=== PATIENT | female | born 1955 | race Caucasian/White ===

== ENCOUNTER 2018-01-31 07:33 | Day surgery (SDC) | payer OTHER ==
[~2018-01-31 07:33] MED LIST: AMBIEN10 MG PO; CIPRO750 MG PO; Colace 100MG PO; NEURONTIN PO; NEUROTIN PO; ORPH100T PO; PERCOCET 10-3251 TAB PO; PERCOCET 5/3251 TAB PO; RELA PO; SYNTHROID150 MCG PO; ULTRACET PO; ZANTAC300 MG PO; ZOCOR40 MG PO
== END 2018-01-31 16:10 | disposition home or self-care (01) ==
LOC: CIR.AMB 07:33
DX: N87.1 Moderate cervical dysplasia (principal); N72 Inflammatory disease of cervix uteri; E03.8 Other specified hypothyroidism

== ENCOUNTER 2025-01-21 10:45 | Inpatient (IN) | payer OTHER ==
[~2025-01-21] VITALS: Ht 170.2 cm; Wt 95.3 kg
[2025-01-21 12:52] LABS: HEMATOCRIT 38.4 % (36.0-45.00); HEMOGLOBIN 12.6 g/dL (12.0-15.00); MEAN CELL VOLUME 86.8 fL (80.00-100.00); MEAN CORPUSCULAR HEMOGLOBIN 28.4 pg (27.00-32.0); MEAN CORPUSCULAR HGB CONC 32.8 g/dl (32.0-36.0); PLATELET COUNT 204 K/uL (150-450); RED BLOOD COUNT 4.42 M/uL (4.00-6.00); RED CELL DISTRIBUTION WIDTH 14.4 % (11.5-14.5)
[2025-01-21 12:54] LABS: PH,URINE 7.5 (5.0-8.0); URINE APPEARANCE Cloudy; URINE BILIRRUBIN Negative (NEGATIVE); URINE BLOOD Negative; URINE COLOR Yellow; URINE GLUCOSE Negative (NEGATIVE); URINE KETONE Negative (NEGATIVE); URINE LEUKOCYTE Small; URINE NITRATE Negative; URINE PROTEIN Negative (NEGATIVE); URINE UROBILINOGEN 0.2 E.U./dl
[2025-01-21 12:55] LABS: URINE BACTERIA 61.1 uL (0.0-1933); URINE EPITHELIAL CELLS 18.3 uL (0.0-38.8); URINE RBC 4.8 uL (0.0-20.8); URINE WBC 102.9 uL (0.0-23.2)
[2025-01-21 13:12] VITALS: BP 130/76
[2025-01-21] MEDS ORDERED: ZETIA10 MG PO (13:13)
[2025-01-21] MEDS ORDERED: TOPROL XL50 M1 PO (13:14)
[2025-01-21] MEDS ORDERED: GLUMETZA500 MG PO (13:14)
[2025-01-21] MEDS ORDERED: LASIX40 MG PO (13:14)
[2025-01-21] MEDS ORDERED: COZAAR100 MG PO (13:14)
[2025-01-21] MEDS ORDERED: SYNTHROID137 MCG PO (13:15)
[2025-01-21] MEDS ORDERED: SINGULAIR10 MG PO (13:15)
[2025-01-21] MEDS ORDERED: CLONAZEPAM0.5 M1 PO (13:15)
[2025-01-21] MEDS ORDERED: TAMBOCOR150 MG PO (13:16)
[2025-01-21] MEDS ORDERED: ELIQUIS5 MG PO (13:16)
[2025-01-21 13:20] LABS: INR 0.95; PARTIAL THROMBOPLASTIN TIME 26.8 SECONDS (22.0-34.0); PROTHROMBIN TIME 10.4 SECONDS (9.0-11.5)
[2025-01-21 14:15] LABS: ALBUMIN 3.6 gm/dL (3.4-5.0); BILIRUBIN TOTAL 0.38 mg/dL (0.3-1.2); CALCIUM 9.4 mg/dL (8.5-10.1); CREATININE SERUM 0.72 mg/dL (0.55-1.02); GFR 80.31; GLOBULINA 3.5 G/DL (2.4-3.5); POTASSIUM 3.88 mEq/L (3.5-5.1); TOTAL PROTEIN 7.1 gm/dL (6.4-8.2)
[2025-01-26] MEDS ORDERED: TRANEXAMIC ACID 100MG/1ML (1000MG) AMPUL IV ONE (09:17)
[2025-01-26] MEDS ORDERED: CEFAZOLIN SODIUM 1,000 MG VIAL ONE ×2 (09:17→11:25)
[2025-01-26] MEDS ORDERED: OxyCODONE HCL/APAP UD (PERCOCET) PO PRN (09:45)
[2025-01-26] MEDS ORDERED: ONDANSETRON HCL 2 MG/ML VIAL IV PRN (09:45)
[2025-01-26] MEDS ORDERED: KETOROLAC TROMETHAMINE 60 MG VIAL IM ONE (10:15)
[2025-01-26] MEDS ORDERED: MORPHINE SULFATE 4 MG/ML VIAL IV ONE ×2 (10:15→13:35)
[2025-01-26] MEDS ORDERED: CEFAZOLIN SODIUM 1,000 MG VIAL IV SCH (12:00)
[2025-01-26] MEDS ORDERED: MORPHINE SULFATE 4 MG/ML CARTRIDGE IV SCH (12:00)
[2025-01-26] MEDS ORDERED: ENALAPRILAT DIHYDRATE 1.25 MG/ML VIAL IV PRN (14:45)
[2025-01-26 15:25] VITALS: BP 105/61
[2025-01-26] MEDS ORDERED: ORPHENADRINE CITRATE 100 MG TABLET PO SCH (21:00)
[2025-01-26] MEDS ORDERED: GABAPENTIN 100 MG CAPSULE PO SCH (21:00)
[2025-01-26] MEDS ORDERED: FF) FLECAINIDE ACETATE 50MG TAB PO SCH (21:00)
[2025-01-27 00:18] VITALS: BP 114/66
[2025-01-27 01:32] LABS: HEMATOCRIT 34.4 % (36.0-45.00); MEAN CELL VOLUME 86.8 fL (80.00-100.00); MEAN CORPUSCULAR HGB CONC 32.7 g/dl (32.0-36.0); PLATELET COUNT 188 K/uL (150-450); RED BLOOD COUNT 3.96 M/uL (4.00-6.00); RED CELL DISTRIBUTION WIDTH 14.3 % (11.5-14.5)
[2025-01-27 01:37] LABS: HEMOGLOBIN 11.2 g/dL (12.0-15.00); MEAN CORPUSCULAR HEMOGLOBIN 28.2 pg (27.00-32.0)
[2025-01-27 05:39] VITALS: BP 134/73
[2025-01-27] MEDS ORDERED: LEVOTHYROXINE SODIUM 137 MCG TABLET PO SCH (06:00)
[2025-01-27 08:05] VITALS: BP 115/61
[2025-01-27] MEDS ORDERED: LOSARTAN POTASSIUM 100 MG TABLET PO SCH (09:00)
[2025-01-27] MEDS ORDERED: METOPROLOL SUCCINATE 50 MG TAB.SR.24H PO SCH (09:00)
[2025-01-27] MEDS ORDERED: APIXABAN 2.5 MG TABLET PO SCH (09:00)
[2025-01-27] MEDS ORDERED: Cyanocobalamin/Mecobalamin 1 TAB.SL SL NR (15:00)
[2025-01-27 16:00] VITALS: BP 120/55
[2025-01-27] MEDS ORDERED: SOD FERRIC GLUC COMPLX/SUCROSE 62.5 MG/5 ML AMPUL IV SCH (17:00)
[2025-01-27] MEDS ORDERED: VITAMIN B COMPLEX 1 EACH PO SCH (17:00)
[2025-01-27] MEDS ORDERED: APIXABAN 5 MG TABLET PO SCH (21:00)
[2025-01-28] VITALS: BP 122/70
[2025-01-28 03:50] LABS: HEMATOCRIT 32.3 % (36.0-45.00); HEMOGLOBIN 10.7 g/dL (12.0-15.00); MEAN CORPUSCULAR HEMOGLOBIN 28.9 pg (27.00-32.0); MEAN CORPUSCULAR HGB CONC 33.3 g/dl (32.0-36.0); PLATELET COUNT 178 K/uL (150-450); RED BLOOD COUNT 3.71 M/uL (4.00-6.00); RED CELL DISTRIBUTION WIDTH 14.2 % (11.5-14.5)
[2025-01-28 08:43] VITALS: BP 140/73
[2025-01-28] MEDS ORDERED: Cyanocobalamin/Mecobalamin 1 TAB.SL SL SCH (09:00)
[2025-01-28] MEDS ORDERED: NORFLEX100MG PO (12:03)
[2025-01-28] MEDS ORDERED: OXYC1TAB9 PO (12:03)
[2025-01-28] MEDS ORDERED: GABAPENTIN100 MG PO (12:03)
[2025-01-28] MEDS ORDERED: ELIQUIS5 MG PO (12:03)
== END 2025-01-28 13:23 | disposition home or self-care (01) | DRG 470 ==
LOC: O/R 01-26 05:00 → OB/GYN 01-26 05:00 → SURH 01-26 09:45 → OB/GYN 01-26 12:48
PROVIDERS: ADMIT Orthopaedic Surgery; ATTEND Orthopaedic Surgery
PROC: 0SRC0JZ Replacement of Right Knee Joint with Synthetic Substitute, Open Approach (ICD-10-PCS; principal; 2025-01-26 09:45)
DX: M17.11 Unilateral primary osteoarthritis, right knee (principal); D62 Acute posthemorrhagic anemia; M85.661 Other cyst of bone, right lower leg; I10 Essential (primary) hypertension; E03.9 Hypothyroidism, unspecified; G47.33 Obstructive sleep apnea (adult) (pediatric)